=== PATIENT | female | born 1950 | race African-American/Black ===

== ENCOUNTER 2018-06-07 19:45 | Emergency (ER) | payer MEDICARE, BC, SELFPAY ==
[2018-06-07] VITALS (8 sets, daily range): BP systolic 137–159; BP diastolic 91–106; PULSE 78–92; RESP 14–23; TEMP 36.3; O2SAT 95–98; BMI 41.3
--- NOTE | 2018-06-07 20:34 | CT_ITS ---
STUDY: CT BRAIN WITHOUT CONTRAST REASON FOR EXAM: Female, 67 years old. Dizziness, blurred vision, headache. RADIATION DOSAGE (If Supplied By Facility): CTDIvol = ( 44.99 ) mGy, DLP = ( 796.11 ) mGycm TECHNIQUE: Transaxial CT imaging of the brain was performed without administration of intravenous contrast material. Individualized dose optimization techniques were used for this CT. COMPARISON: None. FINDINGS: Normal soft tissue structures. Normal calvarium. Normal size ventricles and extra-axial spaces for the patient's age. Normal white matter tracts of the cerebral hemispheres. Normal basal ganglia and thalami. Normal brainstem. Normal cerebellum. There is no intracranial hemorrhage. There are no findings of an acute ischemic infarction. Normal visualized paranasal sinuses. CT/Brain/Head without Contrast IMPRESSION: Normal unenhanced CT scan of the brain. Electronically Signed: Kacey Snyder MD at 21:51 EDT Tel , Service support ,
--- NOTE | 2018-06-07 20:34 | EKG12_ITS ---
Test Reason : WEAKNESS Blood Pressure : / mmHG Vent. Rate : 087 BPM Atrial Rate : 087 BPM P-R Int : 160 ms QRS Dur : 088 ms QT Int : 428 ms P-R-T Axes : -08 034 019 degrees QTc Int : 515 ms Normal sinus rhythm Nonspecific T wave abnormality Abnormal ECG Confirmed by KAE MALDONADO, GILBERT ([id number]), videotape editor JOSE SOTO ([id number] on 06/12/2018 2:58:21 PM Referred By: DC Confirmed By:GILBERT PAL MD
--- NOTE | 2018-06-07 20:37 | RAD_ITS ---
STUDY: X-RAY CHEST REASON FOR EXAM: Female, 67 years old. Dizziness. TECHNIQUE: Portable chest. COMPARISON: None. FINDINGS: The lungs are clear and expanded. There is no demonstrated pleural abnormality. Normal size heart. Normal mediastinum and kaitlynn. Normal visualized pulmonary arteries. Normal visualized aortic arch and descending thoracic aorta. Normal visualized thoracic spine. Normal visualized ribs, clavicles, and shoulders. There is no demonstrated abnormality of the visualized soft tissue structures of the upper abdomen. RAD/Chest 1 View IMPRESSION: Normal x-ray examination of the chest. Electronically Signed: Kacey Snyder MD at 21:06 EDT Tel , Service support ,
[2018-06-07 20:52] LABS: Absolute Lymphocyte Count 3.27 X10^3/ul (0.83-4.51); Absolute Neutrophil Count 5.8 X10^3/uL (2.0-7.7); Basophil# 0.04 X10^3/uL; Basophil% 0.4 % (0-1); Eosinophil# 0.19 X10^3/uL; Eosinophils% 1.9 % (0-5); Hematocrit 42.1 % (37-47); Hemoglobin 13.9 g/dl (12.0-15.0); Lymphocyte # 3.27 X10^3/ul (4.0); Lymphocyte % 33.3 % (19-41); Mean Corpuscular Hgb 29.1 pg (27.0-32.0); Mean Corpuscular Volume 88.3 fL (81-99); Mean Platelet Vol. 9.7 fl (6.2-12.0); Monocyte# 0.47 X10^3/uL; Monocyte% 4.8 % (0-10); Neutrophil # 5.84 X10^3/uL (2.7-7.7); Neutrophil % 59.5 % (47-70); POSITIVE COUNT NO; POSITIVE DIFFERENTIAL NO; Platelet Count 301 K/mm3 (150-450); RBC Distribution Width CV 13.4 % (11.6-14.6); RBC Distribution Width SD 43.7 fl (35.1-43.9); Red Blood Count 4.77 M/mm3 (4.2-5.4); White Blood Count 9.8 K/mm3 (4.4-11.0)
[2018-06-07 20:53] LABS: POSITIVE MORPHOLOGY NO
[2018-06-07 21:01] LABS: International Normalized Ratio 0.9; Prothrombin Time (Protime)PT. 12.1 SECONDS (11.7-14.9)
[2018-06-07 21:02] LABS: Partial Thromboplast Time 30.5 Seconds (24.1-36.2)
[2018-06-07 21:14] LABS: Anion Gap 10 (5-15); BUN 15 mg/dL (7-18); BUN/Creat Ratio 20.5 RATIO (10-20); Calcium,Total 9.4 mg/dL (8.5-10.1); Chloride 103 mmol/L (98-107); Creatinine, Serum 0.73 mg/dL (0.55-1.02); EST Glomerular Filtration Rate 84 mL/min (>60); Est Glom Filt Rate - Afr Amer 102 mL/min (>60); Estimated Creatinine Clearance 51.11 ml/min; Glucose 194 mg/dL (74-106); Sodium Level 138 mmol/L (136-145)
[2018-06-07 21:48] LABS: Red Blood Cells-Urine 0 SEEN /hpf (0-5)
[2018-06-07 21:56] LABS: Color, Urine Yellow (Yellow); Glucose, Dipstick 50 mg/dl (Normal); Ketone-Dipstick 5 mg/dl (Negative); Leukocyte Esterase-Dipstick 25 /ul (Negative); Nitrite-Dipstick Negative (Negative); Occult Blood-Urine Negative /ul (Negative); Protein-Dipstick 30 mg/dl (Negative); Specific Gravity, Urine 1.025 (1.002-1.030); Urine Bilirubin Dipstick Negative (Negative); Urine Clarity Clear (Clear); Urine Urobilinogen 1 mg/dl (Normal)
[2018-06-07 22:06] LABS: Bedside Glucose 191 mg/dL (70-110)
[2018-06-07 22:20] LABS: Bacteria 1+ /hpf (None Seen); Mucous, Urine 1+ /hpf (<or=2+); Squamous Epithelial Cells - UA 10-25 SEEN /hpf (5-10); White Blood Cells 0-5 SEEN /hpf (0-5); Yeast-Urine 2+ /hpf (None Seen)
--- NOTE | 2018-06-07 22:38 | ED.DCSUM_ITS ---
- ER Visit Summary Date of Service: 06/07/18 Chief Complaint: Weak History of Present Illness: The patient is a 67 F with severe weakness started today. This is diffuse. Worse when she woke up. She also reports blurred vision bilaterally in all [place]. She has had right lower back pain for months and she had right upper arm pain today. She had similar symptoms in the past, but has never been able to figure out why. The last time her vision was like this, she required glasses. Denies visual cuts. Denies speech changes. Denies weakness or numbness. Denies chest pain or shortness of breath. Denies fevers. Physical Examination: Afebrile and vital signs unremarkable. Head and neck atraumatic. HEENT exam unremarkable. Heart regular. Lungs clear. Skin normal in color. Cranial nerves grossly intact. She had some mild decreased sensation to her right upper arm, NIH stroke scale was 1. No ataxia or other abnormal neurologic findings. Test Results: EKG showed sinus rhythm at a rate of 87 with nonspecific T-wave changes. Chest x-ray was normal. CT head was normal. CBC normal. Glucose 194. Urinalysis contaminated. Troponin normal. Emergency Department Course and Treatment: Patient has multiple and vague symptoms. Is unclear at this time they are all related. She does have risk factors for heart disease and stroke. Workup was all fairly unremarkable. Patient continued to complain of arm pain and back pain. She was treated with ibuprofen as this has helped in the past. Patient does not want admission. I advised that we would recommend admission for stroke and cardiac evaluation. Patient declined. I expressed that we have not completely ruled out these etiologies. Patient would like to follow-up with her doctor as an outpatient. I advised that she may return at any time if she has any new or worsening symptoms. Patient voiced understanding and agreement. Treatment Plan: As above Disposition: Discharged Impression: 1. Generalized weakness 2. Myalgias This note was generated with [employer] dictation software. It may contain incorrect words, spelling, and punctuation that were not noted in review of the chart prior to signing ED Disposition - Plan for ED Patient: Chief Complaint: Weakness Referrals: Madiha Lazaro MD [Primary Care Provider] -
--- NOTE | 2018-06-07 22:38 | ED.DEP ---
ED Disposition - Plan for ED Patient: Chief Complaint: Weakness Instructions: ED Weakness [facility] Prescriptions: Ibuprofen [Motrin] 800 mg PO TID PRN PRN #20 tab PRN Reason: Pain Referrals: Madiha Lazaro MD [Primary Care Provider] -
[2018-06-07] MEDS: Ibuprofen 600 MG Tablet PO (22:41)
== END 2018-06-07 22:54 | disposition home or self-care (01) ==
PROVIDERS: Emergency Provider Emergency Medicine; Family Provider Internal Medicine; PCP Internal Medicine
DX: R53.1 Weakness (principal); M79.1 Myalgia; M79.621 Pain in right upper arm; M54.5 Low back pain; E11.9 Type 2 diabetes mellitus without complications; E03.9 Hypothyroidism, unspecified; M19.90 Unspecified osteoarthritis, unspecified site; Z79.84 Long term (current) use of oral hypoglycemic drugs; Z79.899 Other long term (current) drug therapy; Z72.0 Tobacco use
CPT/HCPCS: 70450; 71045; 80048; 81001; 82962; 84484; 85025; 85610; 85730; 93005; 99285; A4216